=== PATIENT | female | born 1990 | race Caucasian/White ===

== ENCOUNTER 2020-09-04 21:43 | Emergency (ER) | payer OTHER ==
--- NOTE | 2020-09-04 22:22 | EDM.PDOC ---
ED HPI GENERAL MEDICAL PROBLEM - General Chief Complaint: Skin Complaint Stated Complaint: STITCH OPENED FROM SURGERY Time Seen by Provider: 09/04/20 22:03 Source of Information: Reports: Patient History Limitations: Reports: No Limitations - History of Present Illness INITIAL COMMENTS - FREE TEXT/NARRATIVE: Patient is a 29-year-old female who presents today for possible dehiscence of her wound of her lips. Patient had a silicone injection a few days ago and today when she opened her mouth she felt one of the sutures come out in the corner. She has had no redness or drainage in the area is small. Patient went to come in to make sure she did not need to have the sutures replaced. Upper Lip Pain Score (Numeric/FACES): 3 - Related Data Allergies Allergy/AdvReac Type Severity Reaction Status Date / Time No Known Allergies Allergy Verified 09/04/20 21:58 Past Medical History - Past Surgical History Head Surgeries/Procedures: Reports: None HEENT Surgical History: Reports: Oral Surgery, Other (See Below) Other HEENT Surgeries/Procedures: lip implants Dermatological Surgical History: Reports: Other (See Below) Social & Family History - Tobacco Use Tobacco Use Status *Q: Never Tobacco User Second Hand Smoke Exposure: No - Recreational Drug Use Recreational Drug Use: No ED ROS GENERAL - Review of Systems Review Of Systems: See Below Constitutional: Reports: No Symptoms HEENT: Reports: No Symptoms Respiratory: Reports: No Symptoms Cardiovascular: Reports: No Symptoms Endocrine: Reports: No Symptoms GI/Abdominal: Reports: No Symptoms : Reports: No Symptoms Musculoskeletal: Reports: No Symptoms Skin: Reports: No Symptoms Neurological: Reports: No Symptoms Psychiatric: Reports: No Symptoms Hematologic/Lymphatic: Reports: No Symptoms Immunologic: Reports: No Symptoms ED EXAM, SKIN/RASH Exam: See Below Exam Limited By: No Limitations General Appearance: Alert, WD/WN, No Apparent Distress Throat/Mouth: Normal Inspection, Normal Gums, Other (small less than 2mm wound to corner of mouth that does not require sutures). No: Normal Lips Neurological: Alert, Oriented, Normal Cognition, Normal Gait Course - Vital Signs Last Recorded V/S: Last Vital Signs Temp 97.8 F 09/04/20 21:52 Pulse 71 09/04/20 21:52 Resp 16 09/04/20 21:52 BP 121/76 09/04/20 21:52 Pulse Ox 97 09/04/20 21:52 Departure - Departure Time of Disposition: 22:20 Disposition: Home, Self-Care 01 Condition: Good Clinical Impression: Wound dehiscence - Discharge Information *PRESCRIPTION DRUG MONITORING PROGRAM REVIEWED*: Not Applicable *COPY OF PRESCRIPTION DRUG MONITORING REPORT IN PATIENT RASHAD: Not Applicable Instructions: Wound Dehiscence, [id number] Referrals: PCP,None [Primary Care Provider] - Additional Instructions: . The following information is given to patients seen in the emergency department who are being discharged to home. This information is to outline your options for follow-up care. We provide all patients seen in our emergency department with a follow-up referral. The need for follow-up, as well as the timing and circumstances, are variable depending upon the specifics of your emergency department visit. If you don't have a primary care physician on staff, we will provide you with a referral. We always advise you to contact your personal physician following an e mergency department visit to inform them of the circumstance of the visit and for follow-up with them and/or the need for any referrals to a consulting specialist. The emergency department will also refer you to a specialist when appropriate. This referral assures that you have the opportunity for follow-up care with a specialist. All of these measure are taken in an effort to provide you with op timal care, which includes your follow-up. Under all circumstances we always encourage you to contact your private physician who remains a resource for coordinating your care. When calling for follow-up care, please make the office aware that this follow-up is from your recent emergency room visit. If for any reason you are refused follow-up, please contact the [facility] Emergency Department at and asked to speak to the emergency department charge nurse. Please follow up with your primary care physician. If you do not have a primary care physician, see below: [facility] [address] [place] [id number] [facility] [address] [place] [address] You are seen today after your surgical wound became open at the suture came out. There is very small in the wound margins are touching so the area should heal up on his own without any sutures. If you have any signs of infection such as redness or drainage please return to the ED immediately. Otherwise follow-up with the plastic surgeon who performed the procedure. Sepsis Event Note (ED) - Evaluation Sepsis Screening Result: No Definite Risk - Focused Exam Vital Signs: Vital Signs Temp Pulse Resp BP Pulse Ox 09/04/20 21:52 97.8 F 71 16 121/76 97 - Assessment/Plan Plan: Patient is a 29-year-old female presents today after a cosmetic surgery and had silicone injections her lip. Patient had some observable sutures placed the corner of her mouth and one of them came out on the right side. The area small less than 2 mm does not require any replace with the sutures. There is no redness or signs of infection. Patient will be discharged follow-up plastic surgery.
== END 2020-09-04 22:30 | disposition home or self-care (01) ==
LOC: MW.ED 21:43
DX: T81.30XA Disruption of wound, unspecified, initial encounter (principal)
CPT/HCPCS: 99282

== ENCOUNTER 2021-02-19 17:45 | Emergency (ER) | payer SELFPAY ==
[2021-02-19] MEDS ORDERED: Sodium Chloride 0.9% 2.5 ML Syringe FLUSH PRN (18:47)
[2021-02-19] MEDS ORDERED: Sodium Chloride 0.9% 10 ML Syringe FLUSH PRN (18:47)
[2021-02-19 19:22] LABS: BLOOD UREA NITROGEN,BUN 12 mg/dL (7.0-18.0); CARBON DIOXIDE,CO2 27.5 mmol/L (21.0-32.0); CHLORIDE,CL 102 mmol/L (98-107); GLUCOSE RANDOM 101 mg/dL (74-106); POTASSIUM,K 3.6 mmol/L (3.5-5.1); SODIUM,NA 139 mmol/L (136-145)
[2021-02-19] MEDS ORDERED: Acetaminophen 500 MG Tab PO ONE (19:29)
[2021-02-19] MEDS ORDERED: EPINEPHrine/Lidocaine/Tetracai Topical Gel 3 ML TOP ONE (19:29)
--- NOTE | 2021-02-19 19:31 | EDM.PDOC ---
ED HPI GENERAL MEDICAL PROBLEM - General Chief Complaint: MEDICAL PRACTITIONERS Problem Stated Complaint: VAGINAL TEAR Time Seen by Provider: 02/19/21 19:05 Source of Information: Reports: Patient History Limitations: Reports: No Limitations - History of Present Illness INITIAL COMMENTS - FREE TEXT/NARRATIVE: HISTORY AND PHYSICAL: History of present illness: Patient is a 30-year-old female who presents to the emergency room with complaints of a vaginal tear after intercourse. She states during intercourse he misaligned and hit her right labia causing a tear and active bleeding. This occurred around 3:30 PM and has continued to bleed. Patient denies any fever, chills, headache, change in vision, syncope or near syncope. Denies any chest pain, back pain, shortness of breath or cough. Denies any nausea, vomiting, diarrhea, constipation or dysuria. Has not noted any blood in urine or stool. Patient has been eating and drinking appropriately. No recent travel or sick contacts. Review of systems: As per history of present illness and below otherwise all systems reviewed and negative. Past medical history: As per history of present illness and as reviewed below otherwise noncon tributory. Surgical history: As per history of present illness and as reviewed below otherwise noncontributory. Social history: See social history for further information Family history: As per history of present illness and as reviewed below otherwise noncontributory. Physical exam: General: Well developed and well nourished. Alert and orientated x 3. Nontoxic in appearance and in no acute distress. Vital signs are stable and have been reviewed by me. Nursing notes were reviewed. HEENT: Atraumatic, normocephalic, pupils equal and reactive bilaterally, negative for conjunctival pallor or scleral icterus, mucous membranes moist, trachea midline. No drooling or trismus noted. No meningeal signs. No hot potato voice noted. Lungs: Clear to auscultation bilaterally. No wheezes, rales, or rhonchi. Chest nontender. Normal work of breathing, no accessory muscles used. Heart: S1S2, regular rate and rhythm without overt murmur, gallops, or rubs. No JVD. No peripheral edema Abdomen: Soft, nondistended, nontender. Normoactive bowel sounds. Negative costovertebral tenderness. Pelvis: Stable nontender. Genitourinary/Rectal: This was done with consent and a dulser at the bedside. 3 cm superficial laceration to right inner labia, moderate bleeding noted to distal site. No vaginal bleeding from the cervical os. Patient tolerated well. Skin: Intact, warm, dry. No lesions or rashes noted. Hematologic: No petechiae or purpra. Mucosa appropriate color and normal nail bed color and refill. Extremities: Atraumatic, moves all extremities per self without difficulty or deficits, negative for cords or calf pain. Neurovascular unremarkable. Neuro: Awake, alert, oriented. Cranial nerves II through XII unremarkable. Cerebellum unremarkable. Motor and sensory unremarkable throughout. Exam nonfocal. Psychiatric: Mood and affect are appropriate. Normal thought process. Answering questions appropriately. Please note that the patient was seen and evaluated during the 2019 SARS-CoV-2 n ovel coronavirus pandemic period. Community viral transmission is ongoing at time of this encounter and the emergency department is operating under pandemic response procedures. Medical Decision Making: Patient is a 30-year-old female who presents to the emergency room with complaints of a labial laceration that occurred during sex. The injury occurred at 3:30 PM. Physical exam shows a 3 cm laceration appears superficial with moderate active bleeding still at this time. Will order basic lab work. I spoke with Dr Melgar, he will come in to see the patient. Dr. Melgar did come to the emergency room to evaluate the patient. He sutured the labial laceration. At this time he does not want any antibiotics but would like to see the patient in 5 to 7 days in his clinic. I did have the patient wait 30 to 45 minutes to make sure no breakthrough bleeding occurred. I have talked with the patient about today's findings, in addition to providing specific details for plan of care. Reassessment at the time of disposition demonstrates that the patient is in no acute distress. The patient is stable for discharge, counseling was provided and we discussed in great detail signs and symptoms that would prompt them to return to the Emergency Department. Medication, follow up and supportive care measures were reviewed and discussed. Voices understanding and is agreeable to plan of care. Denies any further questions or concerns at this time. Diagnostics: CBC, CMP, Type and Screen Therapeutics: LET gel, Tylenol Prescription: Given Impression: Labial tear Plan: 1. You were evaluated today on an emergent basis. Your labia was repaired with sutures. You will need to follow-up with Dr. Melgar to have these looked at and removed in 5 to 7 days. Please call tomorrow to set up a follow-up appointment. Let them know you are seen in the emergency room and that you were told to be seen next week. Keep the skin clean and dry. 2. Gentle ice packs (frozen peas) for 10 minutes every 4 hours while painful. You can alternate Tylenol and ibuprofen as needed for pain and fever management. Given as needed for moderate to severe pain. Do not take this mediation while driving as it can cause drowsiness. 3. If your symptoms should worsen, new symptoms develop or any of the signs and symptoms we discussed should arise please return to the emergency room or call 911 (if needed). Definitive disposition and diagnosis as appropriate pending reevaluation and review of above. vaginal Pain Score (Numeric/FACES): 1 - Related Data Allergies Allergy/AdvReac Type Severity Reaction Status Date / Time No Known Allergies Allergy Verified 09/04/20 21:58 Past Medical History HEENT History: Reports: None Cardiovascular History: Reports: None Respiratory History: Reports: None Gastrointestinal History: Reports: None Genitourinary History: Reports: None MEDICAL PRACTITIONERS History: Reports: None Musculoskeletal History: Reports: None Neurological History: Reports: None Psychiatric History: Reports: None Endocrine/Metabolic History: Reports: None Hematologic History: Reports: None Immunologic History: Reports: None Oncologic (Cancer) History: Reports: None Dermatologic History: Reports: None - Infectious Disease History Infectious Disease History: Reports: None - Past Surgical History Head Surgeries/Procedures: Reports: None HEENT Surgical History: Reports: Oral Surgery, Other (See Below) Other HEENT Surgeries/Procedures: lip implants Cardiovascular Surgical History: Reports: None Respiratory Surgical History: Reports: None GI Surgical History: Reports: None Female Surgical History: Reports: None Endocrine Surgical History: Reports: None Neurological Surgical History: Reports: None Musculoskeletal Surgical History: Reports: None Oncologic Surgical History: Reports: None Dermatological Surgical History: Reports: Other (See Below) Social & Family History - Family History Family Medical History: No Pertinent Family History - Tobacco Use Tobacco Use Status *Q: Never Tobacco User Second Hand Smoke Exposure: No - Caffeine Use Caffeine Use: Reports: None - Recreational Drug Use Recreational Drug Use: No ED ROS GENERAL - Review of Systems Review Of Systems: Comprehensive ROS is negative, except as noted in HPI. ED EXAM, RENAL/ - Physical Exam Exam: See Below (See dictation) Course - Vital Signs Last Recorded V/S: Last Vital Signs Temp 98.6 F 02/19/21 18:12 Pulse 69 02/19/21 18:12 Resp 18 02/19/21 18:12 BP 112/81 02/19/21 18:12 Pulse Ox 99 02/19/21 18:12 - Orders/Labs/Meds Orders: Active Orders 24 hr Category Date Time Status Sodium Chloride 0.9% [Saline Flush] Med 02/19/21 18:47 Active 10 ml FLUSH ASDIRECTED PRN Sodium Chloride 0.9% [Saline Flush] Med 02/19/21 18:47 Active 2.5 ml FLUSH ASDIRECTED PRN Saline Lock Insert [OM.PC] Stat Oth 02/19/21 18:47 Ordered Medication Orders Sodium Chloride (Sodium Chloride 0.9% 10 Ml Syringe) 10 ml FLUSH ASDIRECTED PRN PRN Reason: Keep Vein Open Last Admin: 02/19/21 19:02 Dose: 10 ml Documented by: JENNIFER Sodium Chloride (Sodium Chloride 0.9% 2.5 Ml Syringe) 2.5 ml FLUSH ASDIRECTED PRN PRN Reason: Keep Vein Open Last Admin: 02/19/21 19:02 Dose: 2.5 ml Documented by: JENNIFER Labs: Laboratory Tests 02/19/21 02/19/21 02/19/21 Range/Units 19:00 19:00 19:14 WBC 9.10 (4.0-11.0) K/uL RBC 4.32 (4.30-5.90) M/uL Hgb 13.9 (12.0-16.0) g/dL Hct 40.5 (36.0-46.0) % MCV 93.8 (80.0-98.0) fL MCH 32.2 H (27.0-32.0) pg MCHC 34.3 (31.0-37.0) g/dL RDW Std Deviation 42.9 (28.0-62.0) fl RDW Coeff of Elham 13 (11.0-15.0) % Plt Count 217 (150-400) K/uL MPV 10.20 (7.40-12.00) fL Neut % (Auto) 69.2 (48.0-80.0) % Lymph % (Auto) 20.8 (16.0-40.0) % Ellis % (Auto) 9.6 (0.0-15.0) % Eos % (Auto) 0.2 (0.0-7.0) % Baso % (Auto) 0.2 (0.0-1.5) % Neut # (Auto) 6.3 H (1.4-5.7) K/uL Lymph # (Auto) 1.9 (0.6-2.4) K/uL Ellis # (Auto) 0.9 H (0.0-0.8) K/uL Eos # (Auto) 0.0 (0.0-0.7) K/uL Baso # (Auto) 0.0 (0.0-0.1) K/uL Nucleated RBC % 0.0 /100WBC Nucleated RBCs # 0 K/uL Sodium 139 (136-145) mmol/L Potassium 3.6 (3.5-5.1) mmol/L Chloride 102 (98-107) mmol/L Carbon Dioxide 27.5 (21.0-32.0) mmol/L BUN 12 (7.0-18.0) mg/dL Creatinine 0.7 (0.6-1.0) mg/dL Est Cr Clr Drug Dosing 116.35 mL/min Estimated GFR (MDRD) > 60.0 ml/min Glucose 101 (74-106) mg/dL Calcium 8.5 (8.5-10.1) mg/dL Total Bilirubin 0.8 (0.2-1.0) mg/dL AST 12 L (15-37) IU/L ALT 16 (14-63) IU/L Alkaline Phosphatase 43 L (46-116) U/L Total Protein 7.5 (6.4-8.2) g/dL Albumin 4.0 (3.4-5.0) g/dL Globulin 3.5 (2.6-4.0) g/dL Albumin/Globulin Ratio 1.1 (0.9-1.6) Blood Type A POSITIVE Antibody Screen NEGATIVE Meds: Medications Generic Name Dose Route Start Last Admin Trade Name Freq PRN Reason Stop Dose Admin Sodium Chloride 10 ml 02/19/21 18:47 02/19/21 19:02 Sodium Chloride 0.9% 10 Ml Syringe FLUSH 10 ml ASDIRECTED PRN Administration Keep Vein Open Sodium Chloride 2.5 ml 02/19/21 18:47 02/19/21 19:02 Sodium Chloride 0.9% 2.5 Ml Syringe FLUSH 2.5 ml ASDIRECTED PRN Administration Keep Vein Open Discontinued Medications Generic Name Dose Route Start Last Admin Trade Name Mireya PRN Reason Stop Dose Admin Acetaminophen 1,000 mg 02/19/21 19:29 02/19/21 19:34 Acetaminophen 500 Mg Tab PO 02/19/21 19:30 1,000 mg ONETIME ONE Administration Lidocaine HCl Confirm 02/19/21 19:54 Lidocaine 1% 5 Ml Sdv Administered 02/19/21 19:55 Dose 5 ml .ROUTE .STK-MED ONE Lidocaine/Tetracaine 3 ml 02/19/21 19:29 02/19/21 19:34 Epinephrine/Lidocaine/Tetracai Topical Gel 3 Ml TOP 02/19/21 19:30 3 ml ONETIME ONE Administration Departure - Departure Time of Disposition: 20:20 Disposition: Home, Self-Care 01 Clinical Impression: Labial tear Qualifiers: Encounter type: initial encounter Qualified Code(s): S31.41XA - Laceration without foreign body of vagina and vulva, initial encounter - Discharge Information Instructions: Vaginal Laceration Referrals: PCP,None [Primary Care Provider] - Forms: ED Department Discharge Additional Instructions: The following information is given to patients seen in the emergency department who are being discharged to home. This information is to outline your options for follow-up care. We provide all patients seen in our emergency department with a follow-up referral. The need for follow-up, as well as the timing and circumstances, are variable depending upon the specifics of your emergency department visit. If you don't have a primary care physician on staff, we will provide you with a referral. We always advise you to contact your personal physician following an emergency department visit to inform them of the circumstance of the visit and for follow-up with them and/or the need for any referrals to a consulting specialist. The emergency department will also refer you to a specialist when appropriate. This referral assures that you have the opportunity for follow-up care with a specialist. All of these measure are taken in an effort to provide you with optimal care, which includes your follow-up. Under all circumstances we always encourage you to contact your private physician who remains a resource for coordinating your care. When calling for follow-up care, please make the office aware that this follow-up is from your recent emergency room visit. If for any reason you are refused follow-up, please contact the [facility] Emergency Department at and asked to speak to the emergency department charge nurse. [facility] Dr Melgar: [facility] [address] [place] [address] [id number] [address] [address] Thank you for choosing the [facility] emergency department in [place] for your medical needs today. It was a pleasure caring for you. Today you were seen in the emergency department for vaginal tear. 1. You were evaluated today on an emergent basis. Your labia was repaired with sutures. You will need to follow-up with Dr. Melgar to have these looked at and removed in 5 to 7 days. Please call tomorrow to set up a follow-up appointment. Let them know you are seen in the emergency room and that you were told to be seen next week. Keep the skin clean and dry. 2. Gentle ice packs (frozen peas) for 10 minutes every 4 hours while painful. You can alternate Tylenol and ibuprofen as needed for pain and fever management. Given as needed for moderate to severe pain. Do not take this mediation while driving as it can cause drowsiness. 3. If your symptoms should worsen, new symptoms develop or any of the signs and symptoms we discussed should arise please return to the emergency room or call 911 (if needed). Sepsis Event Note (ED) - Evaluation Sepsis Screening Result: No Definite Risk - Focused Exam Vital Signs: Vital Signs Temp Pulse Resp BP Pulse Ox 02/19/21 18:12 98.6 F 69 18 112/81 99 - My Orders Last 24 Hours: My Active Orders 02/19/21 18:47 Sodium Chloride 0.9% [Saline Flush] 10 ml FLUSH ASDIRECTED PRN Sodium Chloride 0.9% [Saline Flush] 2.5 ml FLUSH ASDIRECTED PRN Saline Lock Insert [OM.PC] Stat - Assessment/Plan Last 24 Hours: My Active Orders 02/19/21 18:47 Sodium Chloride 0.9% [Saline Flush] 10 ml FLUSH ASDIRECTED PRN Sodium Chloride 0.9% [Saline Flush] 2.5 ml FLUSH ASDIRECTED PRN Saline Lock Insert [OM.PC] Stat
--- NOTE | 2021-02-21 10:14 | CONS ---
DATE OF CONSULTATION: 02/19/2021 DATE OF : 1990 PRIMARY CARE PHYSICIAN: None PCP Ms. Humphrey is a 30-year-old patient. She presented to the emergency room with vaginal bleeding from her labia. According to her history, the patient did have intercourse and she started bleeding after she had labial laceration. There was significant bleeding from her labial laceration. I was consulted by the ER doctor for evaluation. Upon my arrival, the patient had rather large and deep right labial laceration. It was about 8 to 10 cm, and it was actively bleeding when I arrived. According to the patient is that she had this laceration during intercourse, but according to physical finding and examination, it is most likely this laceration happened by a sharp object. Anyhow, the patient was consulted, and I explained to her the finding, and I told her to stop the bleeding we need to repair and close the laceration. The patient consented for that, and after giving her 1% Xylocaine copious amount to deaden the area, I used 4-0 Vicryl interlocking continuous to close the incision and to stop the bleeding. Once the suturing is done, the bleeding stopped. The patient instructed to use sitz bath and local antibiotic cream if it is needed, and she is to follow up in the office in 1 week for followup examination. TAWANA GALAVIZ /[id number]
== END 2021-02-19 20:50 | disposition home or self-care (01) ==
LOC: MW.ED 17:45
DX: S31.41XA Laceration without foreign body of vagina and vulva, initial encounter (principal); W50.0XXA Accidental hit or strike by another person, initial encounter
CPT/HCPCS: 12004; 36415; 80053; 85025; 86850; 86900; 86901; 99284; A9270